=== PATIENT | male | born 1955 | race Caucasian/White ===

== ENCOUNTER 2017-12-03 07:57 | Emergency (ER) | payer OTHER ==
[~2017-12-03] VITALS: Ht 170.2 cm; Wt 86.2 kg
[2017-12-03 08:00] VITALS: BP 147/108
--- NOTE | 2017-12-03 08:00 | NUR ---
PT BIBA BLS TO BED 7
--- NOTE | 2017-12-03 08:05 | NUR ---
62Y/M BIBA C/O LOWER BACK PAIN. PT STATES " HE HAS LOWER BACK PAIN EXACERBATION; DENIES ANY RECENT INJURY; PT ADMITS TO ETOH CONSUMPTION 12 PACK"; PT DENIES ANY INCONTINENCE AT THIS TIME. PT AMB WITH CANE. PT DENIES N/V/D; SKIN IS PINK/WARM/DRY; AAOX4 WITH EVEN AND STEADY GAIT; LUNGS CLEAR BL; HR EVEN AND REGULAR; PT DENIES ANY FEVER, CP, SOB, OR COUGH AT THIS TIME; PATIENT STATES PAIN OF 10/10 AT THIS TIME; VSS; PATIENT POSITIONED FOR COMFORT; HOB ELEVATED; BEDRAILS UP X1; BED DOWN. ER MD MADE AWARE OF PT STATUS. HX; CHRONIC BACK PAIN, FIBROMYALGIA, HTN, HEP C, BIPOLAR DEPRESSION, ANXIETY RX; NORCO
--- NOTE | 2017-12-03 08:16 | NUR ---
pt asked me to call his to inform of pt's arrival to hospital--no answer darian pt's room mate was called and informed upon pt's request
--- NOTE | 2017-12-03 08:42 | NUR ---
Patient being evaluated by physician at bedside.
[2017-12-03] MEDS ORDERED: METHOCARBAMOL 500 MG TAB PO SCH (08:45)
[2017-12-03] MEDS ORDERED: KETOROLAC 60 MG/2 ML VIAL IM ONE (08:45)
[2017-12-03] MEDS ORDERED: HYDROcodone/APAP 5/325 MG 1 TAB TAB PO ONE (08:45)
[2017-12-03 09:41] VITALS: BP 145/105
--- NOTE | 2017-12-03 09:41 | NUR ---
Patient discharged with v/s stable. Written and verbal after care instructions given and explained. Patient alert, oriented and verbalized understanding of instructions. Ambulatory with steady gait. All questions addressed prior to discharge. ID band removed. Patient advised to follow up with PMD. Rx of robaxin and norco given. Patient educated on indication of medication including possible reaction and side effects. Opportunity to ask questions provided and answered.
== END 2017-12-03 09:41 | disposition home or self-care (01) ==
LOC: MED 07:57
DX: G89.29 Other chronic pain (principal); M54.5 Low back pain; R94.31 Abnormal electrocardiogram [ECG] [EKG]; I10 Essential (primary) hypertension; M79.7 Fibromyalgia
CPT/HCPCS: 93005; 96372; 99283; J1885